=== PATIENT | female | born 1955 | race Caucasian/White ===

== ENCOUNTER 2022-02-27 07:17 | Day surgery (SDC) | payer MEDICARE, MEDICAID, SELFPAY ==
[2022-02-27] VITALS (7 sets, daily range): BP systolic 123–154; BP diastolic 75–93; PULSE 64–85; RESP 14–16; TEMP 36.5–36.7; O2SAT 99–100; BMI 23.6
[2022-02-27] MEDS: Lactated Ringers 1,000 ML 15 ML IV (07:50)
[2022-02-27] MEDS: Lidocaine 1%/Epi 1:200 (30ml) 30 ML AMPUL (10:19)
== END 2022-02-27 23:59 | disposition home or self-care (01) ==
LOC: SDC 07:25 → AC 07:26
PROVIDERS: Referring Provider Anesthesiology Pain Medicine; Visit Provider Anesthesiology Pain Medicine
PROC: (CPT 63688; principal; 2022-02-27 08:15)
DX: T85.122A Displacement of implanted electronic neurostimulator of spinal cord electrode (lead), initial encounter (principal); Y83.8 Other surgical procedures as the cause of abnormal reaction of the patient, or of later complication, without mention of misadventure at the time of the procedure; I10 Essential (primary) hypertension; M19.90 Unspecified osteoarthritis, unspecified site; Z86.73 Personal history of transient ischemic attack (TIA), and cerebral infarction without residual deficits
CPT/HCPCS: 63688; 63661; 00300; 76000; 87426; J7120; J2405